=== PATIENT | female | born 2000 | race American Indian/Alaskan Native ===

== ENCOUNTER 2020-12-22 06:05 | Inpatient (IN) | payer SELFPAY ==
--- NOTE | 2020-12-22 06:36 | Event Note ---
ED Screening Note ED Screening Note: 20-year-old female presents emerged department complaining of pain to the right collarbone area into the right ribs of unknown etiology states that if she feels pops and sharp pain radiates across those regions worse when she takes a deep breath and certain movements. She cannot measure department democracy for the little short of breath. She reports This initial assessment/diagnostic orders/clinical plan/treatment(s) is/are subject to change based on patients health status, clinical progression and re- assessment by fellow clinical providers in the ED. Further treatment and workup at subsequent clinical providers discretion. Patient/guardian urged not to elope from the ED as their condition may be serious if not clinically assessed and managed. Initial orders include: Chest x-ray
--- NOTE | 2020-12-22 07:07 | XRay Report ---
CHEST 2 VIEWS INDICATION: chest pain. COMPARISON: None. FINDINGS: Support devices: None. Heart: Within normal limits. Lungs/Pleura: No acute air space or interstitial disease. No significant pleural effusion. IMPRESSION: No acute findings. Signer Name: Tez Ortiz MD Signed: 12/22/2020 7:02 AM Workstation Name: [id number]
--- NOTE | 2020-12-22 08:02 | Emergency Department Report ---
ED General Adult HPI - General Chief complaint: Dyspnea/Respdistress Stated complaint: RT SIDE PAIN FROM NECK DOWN TO THE SIDE Time Seen by Provider: 12/22/20 07:58 Source: patient Mode of arrival: Ambulatory Limitations: No Limitations - History of Present Illness Initial comments: Patient is 20 years old female with no significant past medical history. Patient presented to the ER complaining of right sided chest pain started 2 days ago. Patient described her chest pain as sharp increase with deep inspiration. Patient stated that she was coughing yesterday a lot. Patient denied any fever or chills. No shortness of breath. Patient denied any recent history of immobilization. - Related Data Allergies Allergy/AdvReac Type Severity Reaction Status Date / Time No Known Allergies Allergy Unverified 12/22/20 08:10 ED Review of Systems ROS: Stated complaint: RT SIDE PAIN FROM NECK DOWN TO THE SIDE Other details as noted in HPI Comment: All other systems reviewed and negative Constitutional: denies: chills, fever Respiratory: cough. denies: orthopnea, shortness of breath, SOB with exertion, SOB at rest Cardiovascular: chest pain. denies: palpitations, dyspnea on exertion Gastrointestinal: denies: abdominal pain, nausea, vomiting Neurological: denies: headache, weakness, numbness, paresthesias, confusion ED Past Medical Hx - Past Medical History Previous Medical History?: No - Surgical History Past Surgical History?: No ED Physical Exam - General Limitations: No Limitations General appearance: alert, in no apparent distress - Head Head exam: Present: atraumatic, normocephalic, normal inspection - Eye Eye exam: Present: normal appearance - ENT ENT exam: Present: normal exam, normal orophraynx, mucous membranes moist - Neck Neck exam: Present: normal inspection, full ROM. Absent: tenderness, meningismus - Respiratory Respiratory exam: Present: normal lung sounds bilaterally, chest wall tenderness - Cardiovascular Cardiovascular Exam: Present: regular rate, normal rhythm, normal heart sounds - GI/Abdominal GI/Abdominal exam: Present: soft, normal bowel sounds. Absent: distended, tenderness, guarding, rebound, rigid, organomegaly, mass, bruit, pulsatile mass, hernia - Extremities Exam Extremities exam: Present: normal inspection, full ROM, normal capillary refill. Absent: pedal edema, calf tenderness - Back Exam Back exam: Present: normal inspection, full ROM. Absent: CVA tenderness (R), CVA tenderness (L) - Neurological Exam Neurological exam: Present: alert, oriented X3, CN II-XII intact, normal gait, reflexes normal. Absent: motor sensory deficit - Psychiatric Psychiatric exam: Present: normal mood - Skin Skin exam: Present: warm, intact, normal color ED Course Vital Signs 12/22/20 12/22/20 12/22/20 06:19 08:25 10:44 Temperature 98.2 F Pulse Rate 92 H Respiratory 17 16 16 Rate Blood Pressure Blood Pressure 140/84 [Right] O2 Sat by Pulse 98 Oximetry 12/22/20 12/22/20 12/22/20 11:14 11:15 11:21 Temperature Pulse Rate 102 H 93 H 86 Respiratory 20 19 20 Rate Blood Pressure 152/93 152/93 Blood Pressure [Right] O2 Sat by Pulse 100 100 99 Oximetry ED Medical Decision Making - Lab Data Result diagrams: 12/22/20 08:36 12/22/20 08:36 - Radiology Data Radiology results: report reviewed - Medical Decision Making Patient is 20 years old female with no significant past medical history. Patient presented to the ER complaining of right sided chest pain started 2 days ago. Patient described her chest pain as sharp increase with deep inspiration. Patient stated that she was coughing yesterday a lot. Patient denied any fever or chills. No shortness of breath. Patient denied any recent history of immobilization. CTA chest showed bilateral pulmonary emboli, right side is bigger with some consolidation indicating possible pulmonary infarction. I started patient on Heparin drip. I discussed the patient with Dr. Omalley, he agreed to admit the patient to medical service for further management. Critical Care Time: Yes Critical care time in (mins) excluding proc time.: 35 Critical care attestation.: If time is entered above; I have spent that time in minutes in the direct care of this critically ill patient, excluding procedure time. ED Disposition Clinical Impression: Bilateral pulmonary embolism, Acute chest pain Disposition: ADMITTED INPATIENT Is pt being admited?: Yes Condition: Stable Instructions: Chest Pain (ED)
[2020-12-22] MEDS: KETOROLAC 60 MG/2 ML INJ IM SCH ×2 (08:25→10:44)
[2020-12-22 09:00] LABS: Basophils # (Auto) 0.1 K/mm3 (0.0-0.1); Basophils % (Auto) 0.8 % (0.0-1.8); Eosinophils # (Auto) 0.1 K/mm3 (0.0-0.4); Hematocrit 40.3 % (30.3-42.9); Hemoglobin 13.2 gm/dl (10.1-14.3); Lymphocytes # (Auto) 1.7 K/mm3 (1.2-5.4); Mean Corpuscular HGB Conc 33 % (30-34); Mean Corpuscular Volume 90 fl (79-97); Monocytes # (Auto) 0.7 K/mm3 (0.0-0.8); Platelet Count 253 K/mm3 (140-440); Red Blood Count 4.49 M/mm3 (3.65-5.03)
[2020-12-22 09:18] LABS: BUN/Creatinine Ratio 18; Blood Urea Nitrogen 11 mg/dL (7-17); Calcium 9.4 mg/dL (8.4-10.2); Hemolysis Index 8
--- NOTE | 2020-12-22 11:01 | Cat Scan Report ---
CTA chest with contrast INDICATION : CHEST PAIN WITH SOB. TECHNIQUE: Axial imaging performed through the chest, with contrast bolus timing set to maximize opa cification of the pulmonary arteries. 3-plane MIP reformatted images were obtained. All CT scans at this location are performed using CT dose reduction for ALARA by means of automated exposure control. 95 mL of intravenous contrast administered. COMPARISON: None FINDINGS: Bolus/PTE: Contrast bolus timing is adequate. There is subsegmental thrombus in the right lower lob e and to a lesser extent in the left lower lobe. Mediastinum: Heart and great vessels appear normal. No pathologic mediastinal adenopathy. Lungs: There is patchy right basilar airspace disease which abuts the pleural surface. No pleural ef fusion. Lungs are otherwise clear. Upper abdomen: Limited imaging of the upper abdomen shows nothing acute. Bones: Degenerative changes in the spine with nothing acute. IMPRESSION: Subsegmental PTE in both lower lobes, overall more significant on the right where there i s patchy pleural based airspace disease which could at least in part represent parenchymal ischemic c hange. COMMUNICATION: Time of Communication (STRUCTURAL IRONWORKER/CDT): 9:53 Licensed Practitioner Receiving Report: Dr. Figueroa Signer Name: Han Villafana MD Signed: 12/22/2020 10:56 AM Workstation Name: [id number]
[2020-12-22] MEDS ORDERED: MORPHINE 4 MG/1 ML INJ IV ONE (11:33)
[2020-12-22] MEDS ORDERED: ONDANSETRON 4 MG/2 ML INJ IV ONE (11:33)
[2020-12-22 11:45] LABS: INR 0.88 (0.87-1.13)
[2020-12-22 11:46] LABS: Partial Thromboplastin Time 28.2 Sec. (24.2-36.6)
[2020-12-22] MEDS: HEPARIN/ 0.45% NACL DRIP 25,000 UNIT/500 ML BAG IV SCH (12:40)
--- NOTE | 2020-12-22 21:22 | History and Physical Report ---
History of Present Illness Date of examination: 12/22/20 Date of admission: 12/22/20 11:30 Chief complaint: Right-sided chest pain for 4 days History of present illness: 21-year-old former with no significant past medical history comes to the emergency room complaining of right chest sided chest pain for last 2 days more so with inspiration. Pain is sharp and about 8 on a scale of 1-10. Also short of breath since last night. Shortness of breath on minimal exertion. Patient does marijuana and alcohol on a regular basis. Recently started on oral contraceptives. Patient was on Depo-Provera injections. Patient lying comfortably. No fever or chills. Patient is unvaccinated. - Past Medical History Previous Medical History?: No - Surgical History Past Surgical History?: No -Social history smokes marijuana and alcohol on regular basis. - Family history Htn -Review of Systems ROS: Stated complaint: RT SIDE PAIN FROM NECK DOWN TO THE SIDE Other details as noted in HPI Comment: All other systems reviewed and negative Constitutional: denies: chills, fever Respiratory: cough. denies: orthopnea, shortness of breath, SOB with exertion, SOB at rest Cardiovascular: chest pain. denies: palpitations, dyspnea on exertion Gastrointestinal: denies: abdominal pain, nausea, vomiting Neurological: denies: headache, weakness, numbness, paresthesias, confusion Medications and Allergies Allergies Allergy/AdvReac Type Severity Reaction Status Date / Time No Known Allergies Allergy Unverified 12/22/20 08:10 Home Medications Medication Instructions Recorded Confirmed Last Taken Type Afaxys 12/22/20 12/22/20 History Active Meds: Active Medications Heparin Sodium/Sodium Chloride (Heparin/ 0.45% Nacl-25,000 Unit/500 Ml) 25,000 unit in 500 mls @ 29 mls/hr IV TITR JEROD; Protocol Last Titration: 12/22/20 20:18 Dose: 1,450 units/hr, 29 mls/hr Documented by: Exam - Constitutional Vitals: Temp Pulse Resp BP Pulse Ox 98.2 F 74 14 137/75 97 12/22/20 06:19 12/22/20 21:00 12/22/20 21:00 12/22/20 21:00 12/22/20 21:00 General appearance: Present: no acute distress, well-nourished - EENT Eyes: Present: PERRL ENT: hearing intact, clear oral mucosa - Neck Neck: Present: supple, normal ROM - Respiratory Respiratory effort: normal Respiratory: bilateral: CTA - Cardiovascular Heart rate: 78 Rhythm: regular Heart Sounds: Present: S1 & S2. Absent: rub, click - Extremities Extremities: pulses symmetrical, No edema Peripheral Pulses: within normal limits - Abdominal General gastrointestinal: Present: soft, non-tender, non-distended, normal bowel sounds Female genitourinary: Present: normal - Rectal Rectal Exam: deferred - Integumentary Integumentary: Present: clear, warm, dry - Musculoskeletal Musculoskeletal: gait normal, strength equal bilaterally - Psychiatric Psychiatric: appropriate mood/affect, intact judgment & insight - Neurologic Neurologic: CNII-XII intact, moves all extremities - Allied Health Allied health notes reviewed: nursing, case management Results - Labs CBC & Chem 7: 12/23/20 05:47 12/22/20 08:36 Labs: Laboratory Last Values WBC 10.5 K/mm3 (4.5-11.0) 12/22/20 08:36 RBC 4.49 M/mm3 (3.65-5.03) 12/22/20 08:36 Hgb 13.2 gm/dl (10.1-14.3) 12/22/20 08:36 Hct 40.3 % (30.3-42.9) 12/22/20 08:36 MCV 90 fl (79-97) 12/22/20 08:36 MCH 29 pg (28-32) 12/22/20 08:36 MCHC 33 % (30-34) 12/22/20 08:36 RDW 13.0 % (13.2-15.2) L 12/22/20 08:36 Plt Count 253 K/mm3 (140-440) 12/22/20 08:36 Lymph % (Auto) 16.0 % (13.4-35.0) 12/22/20 08:36 [place] % (Auto) 7.0 % (0.0-7.3) 12/22/20 08:36 Eos % (Auto) 1.0 % (0.0-4.3) 12/22/20 08:36 Baso % (Auto) 0.8 % (0.0-1.8) 12/22/20 08:36 Lymph # (Auto) 1.7 K/mm3 (1.2-5.4) 12/22/20 08:36 [place] # (Auto) 0.7 K/mm3 (0.0-0.8) 12/22/20 08:36 Eos # (Auto) 0.1 K/mm3 (0.0-0.4) 12/22/20 08:36 Baso # (Auto) 0.1 K/mm3 (0.0-0.1) 12/22/20 08:36 Seg Neutrophils % 75.2 % (40.0-70.0) H 12/22/20 08:36 Seg Neutrophils # 7.9 K/mm3 (1.8-7.7) H 12/22/20 08:36 PT 13.0 Sec. (12.2-14.9) 12/22/20 Unknown INR 0.88 (0.87-1.13) 12/22/20 Unknown APTT 28.2 Sec. (24.2-36.6) 12/22/20 Unknown D-Dimer 774.68 ng/mlDDU (0-234) H 12/22/20 08:36 Heparin Anti-Xa Level 0.36 U.I./ml (0.3-0.7) 12/22/20 19:27 Sodium 137 mmol/L (137-145) 12/22/20 08:36 Potassium 4.4 mmol/L (3.6-5.0) 12/22/20 08:36 Chloride 102.8 mmol/L (98-107) 12/22/20 08:36 Carbon Dioxide 20 mmol/L (22-30) L 12/22/20 08:36 Anion Gap 19 mmol/L 12/22/20 08:36 BUN 11 mg/dL (7-17) 12/22/20 08:36 Creatinine 0.6 mg/dL (0.6-1.2) 12/22/20 08:36 Estimated GFR > 60 ml/min 12/22/20 08:36 BUN/Creatinine Ratio 18 % 12/22/20 08:36 Glucose 104 mg/dL (65-100) H 12/22/20 08:36 Calcium 9.4 mg/dL (8.4-10.2) 12/22/20 08:36 Lipase 11 units/L (13-60) L 12/22/20 08:36 HCG, Qual Negative (Negative) 12/22/20 08:36 - Imaging and Cardiology Chest x-ray: report reviewed CT scan - chest: report reviewed Imaging and Cardiology: Chest x-ray No acute findings Chest CTA Subsegmental pulmonary embolism in both lower lobes overall more significant on the right where there is patchy pleural based airspace disease which could at least in part represent parenchymal ischemic change Assessment and Plan Advance Directives: Yes (Full code) VTE prophylaxis?: Chemical Plan of care discussed with patient/family: Yes - Patient Problems (1) Bilateral pulmonary embolism Current Visit: Yes Status: Acute Plan to address problem: Patient initiated on IV heparin Intubated transition to Eliquis Only risk factor is oral contraceptives and smoking No call pulmonary hence vascular surgery was not consulted (2) Acute chest pain Current Visit: Yes Status: Acute (3) Tetrahydrocannabinol (THC) dependence Current Visit: Yes Status: Chronic Plan to address problem: Patient counseled (4) DVT prophylaxis Current Visit: Yes Status: Acute Plan to address problem: Patient on anticoagulation and GI prophylaxis
[2020-12-22] MEDS ORDERED: oxyCODONE /ACETAMINOPHEN 5-325MG TAB PO PRN (21:24)
[2020-12-22] MEDS ORDERED: ACETAMINOPHEN 325 MG TAB PO PRN (21:24)
[2020-12-22] MEDS ORDERED: ONDANSETRON 4 MG/2 ML INJ IV PRN (21:24)
[2020-12-22] MEDS ORDERED: METOCLOPRAMIDE 10 MG/2 ML INJ IV PRN (21:24)
[2020-12-22] MEDS ORDERED: KETOROLAC 30 MG/1 ML INJ IV PRN (21:28)
[2020-12-22] MEDS ORDERED: SODIUM CHLORIDE 0.9% 1000 ML 1,000 ML IV SCH (21:30)
[2020-12-22] MEDS: HYDROmorphone 1 MG/1 ML INJ IV PRN (22:15)
[2020-12-22 22:31] VITALS: BP 141/90
[2020-12-22] MEDS: FAMOTIDINE 20 MG/2 ML INJ IV SCH (22:47)
[2020-12-23] MEDS: HYDROmorphone 1 MG/1 ML INJ IV PRN (01:54)
[2020-12-23] MEDS: HEPARIN/ 0.45% NACL DRIP 25,000 UNIT/500 ML BAG IV SCH (05:50)
[2020-12-23 06:17] LABS: Basophils # (Auto) 0.1 K/mm3 (0.0-0.1); Basophils % (Auto) 0.6 % (0.0-1.8); Eosinophils # (Auto) 0.1 K/mm3 (0.0-0.4); Eosinophils % (Auto) 0.8 % (0.0-4.3); Hematocrit 37.7 % (30.3-42.9); Hemoglobin 12.2 gm/dl (10.1-14.3); Lymphocytes # (Auto) 2.1 K/mm3 (1.2-5.4); Lymphocytes % (Auto) 23.5 % (13.4-35.0); Mean Corpuscular HGB Conc 32 % (30-34); Mean Corpuscular Volume 90 fl (79-97); Monocytes # (Auto) 0.7 K/mm3 (0.0-0.8); Monocytes % (Auto) 7.9 % (0.0-7.3); Platelet Count 235 K/mm3 (140-440); Red Blood Count 4.18 M/mm3 (3.65-5.03); Red Cell Distribution Width 12.6 % (13.2-15.2)
[2020-12-23 06:36] LABS: Blood Urea Nitrogen 8 mg/dL (7-17); Calcium 9.2 mg/dL (8.4-10.2); Hemolysis Index 2
[2020-12-23 06:37] LABS: BUN/Creatinine Ratio 11
[2020-12-23] MEDS ORDERED: HEPARIN 10,000 UNITS/10 ML VIAL IV PRN (07:45)
[2020-12-23 08:05] LABS: INR 0.91 (0.87-1.13)
[2020-12-23 08:09] LABS: Partial Thromboplastin Time 65.1 Sec. (24.2-36.6)
[2020-12-23] MEDS: FAMOTIDINE 20 MG/2 ML INJ IV SCH (09:08)
--- NOTE | 2020-12-23 12:09 | Discharge Summary ---
Providers - Providers Date of Admission: 12/22/20 11:30 Attending physician: BRIANA MELENDEZ MD Primary care physician: NURSERY MANAGER Hospitalization Reason for admission: shortness of breath Condition: Stable Hospital course: Chief complaint: Right-sided chest pain for 4 days History of present illness: 21-year-old former with no significant past medical history comes to the emergency room complaining of right chest sided chest pain for last 2 days more so with inspiration. Pain is sharp and about 8 on a scale of 1-10. Also short of breath since last night. Shortness of breath on minimal exertion. Patient does marijuana and alcohol on a regular basis. Recently started on oral contraceptives. Patient was on Depo-Provera injections. Patient lying comfortably. No fever or chills. Patient is unvaccinated. Hospital course Patient was admitted for bilateral pulmonary embolism. She was initiated on IV heparin this hospital admission. Patient was on room air at the time of discharge. She was asymptomatic. I discussed with her the need to initiate Xarelto for at least 3 months or at the discretion of her primary care doctor. We believe that the pulmonary embolism was provoked from patient smoking history in the setting of oral contraceptive use. Advised the patient to hold oral contraceptives at this time and to abstain from smoking. Oral contraceptives can be resumed at the discretion of her primary care doctor. Prescriptions for Xarelto 15 mg p.o. twice daily to be initiated upon discharge and discontinued January 14, 2021 sent to pharmacy. Patient also written a 30-day prescription for Xarelto 20 mg p.o. daily to be initiated on January 14, 2021. Imaging and Cardiology: Chest x-ray No acute findings Chest CTA Subsegmental pulmonary embolism in both lower lobes overall more significant on the right where there is patchy pleural based airspace disease which could at least in part represent parenchymal ischemic change - Patient Problems (1) Bilateral pulmonary embolism Current Visit: Yes Status: Acute Plan to address problem: Patient initiated on IV heparin Intubated transition to Eliquis Only risk factor is oral contraceptives and smoking No call pulmonary hence vascular surgery was not consulted (2) Acute chest pain Current Visit: Yes Status: Acute (3) Tetrahydrocannabinol (THC) dependence Current Visit: Yes Status: Chronic Plan to address problem: Patient counseled (4) DVT prophylaxis Current Visit: Yes Status: Acute Plan to address problem: Patient on anticoagulation and GI prophylaxis Disposition: 01 HOME / SELF CARE / HOMELESS Final Discharge Diagnosis (Prints w/discharge instructions): Pulmonary Embolism Time spent for discharge: 35 - Discharge Diagnoses (1) Acute chest pain Status: Acute (2) Bilateral pulmonary embolism Status: Acute (3) DVT prophylaxis Status: Acute (4) Tetrahydrocannabinol (THC) dependence Status: Chronic Core Measure Documentation - Palliative Care Palliative Care/ Comfort Measures: Not Applicable - Core Measures Any of the following diagnoses?: DVT/PE - VTE Discharge Requirements Deep Vein Thrombosis/Pulmonary Embolism Present on Admission: No Has pt received <5 days of overlap therapy or INR<2.0: No (doac) Anticoagulant overlap therapy prescribed at discharge: No Contraindication No Overlap Therapy order at DC: Not Indicated (doac rx) Exam - Physical Exam Narrative exam: Physical Exam: VITAL SIGNS: Reviewed. GENERAL: The patient appears normally developed, Vital signs as documented. HEAD: No signs of head trauma. EYES: Pupils are equal. Extraocular motions intact. EARS: Hearing grossly intact. MOUTH: Oropharynx is normal. NECK: No adenopathy, no JVD. CHEST: Chest with clear breath sounds bilaterally. No wheezes, rales, or rhon chi. CARDIAC: Regular rate and rhythm. S1 and S2, without murmurs, gallops, or rubs. VASCULAR: No Edema. Peripheral pulses normal and equal in all extremities. ABDOMEN: Soft, non tender and non distended. No rebound or guarding, and no masses palpated. Bowel Sounds normal. MUSCULOSKELETAL: Good range of motion of all major joints. Extremities without clubbing, cyanosis or edema. NEUROLOGIC EXAM: Alert and oriented x 4. no focal sensory or strength deficits. PSYCHIATRIC: Mood normal. SKIN: detail exam as documented in skin assessment - Constitutional Vitals: Temp Pulse Resp BP Pulse Ox 98.2 F 82 18 141/90 100 12/22/20 06:19 12/23/20 06:55 12/23/20 02:55 12/22/20 22:00 12/23/20 10:22 Plan Follow up with: PRIMARY CARE, [Primary Care Provider] - 3-5 Days Prescriptions: Rivaroxaban [Xarelto] 15 mg PO BID 21 Days #42 tablet Rivaroxaban [Xarelto] 20 mg PO QDAY 30 Days #30 tab
== END 2020-12-23 15:31 | disposition home or self-care (01) | DRG 176 ==
LOC: ED 06:05 → 4A 11:30
PROVIDERS: ADMIT Internal Medicine; ATTEND Internal Medicine
DX: I26.99 Other pulmonary embolism without acute cor pulmonale (principal)
CPT/HCPCS: 36415; 71046; 71275; 80048; 83690; 84703; 85025; 85379; 85520; 85610; 85730; G0378; J3490; J1170; J1644; J1885; J2405; Q9967

== ENCOUNTER 2021-03-17 13:47 | Emergency (ER) | payer SELFPAY ==
--- NOTE | 2021-03-17 15:02 | Event Note ---
ED Screening Note ED Screening Note: SEE HERE 12/22 W SAME COMPLAINTS CP/HEAVY RIGHT SIDE PLEURITIC PAIN HEADACHE WAS FOUND TO HAVE PE- THOUGHT TO BE R/T BCP SHE STOPPED XARALTO DUE TO COST DID NOT FOLLOW UP PMH DENIES PSH DENIES DUE FOR MENSES THIS WEEK ETOH THC This initial assessment/diagnostic orders/clinical plan/treatment(s) is/are subject to change based on patients health status, clinical progression and re- assessment by fellow clinical providers in the ED. Further treatment and workup at subsequent clinical providers discretion. Patient/guardian urged not to elope from the ED as their condition may be serious if not clinically assessed and managed. Initial orders include: RO PE/DVT
[2021-03-17 16:27] LABS: Basophils # (Auto) 0.1 K/mm3 (0.0-0.1); Basophils % (Auto) 0.9 % (0.0-1.8); Eosinophils # (Auto) 0.1 K/mm3 (0.0-0.4); Eosinophils % (Auto) 1.6 % (0.0-4.3); Hematocrit 38.7 % (30.3-42.9); Hemoglobin 12.8 gm/dl (10.1-14.3); Lymphocytes # (Auto) 2.1 K/mm3 (1.2-5.4); Lymphocytes % (Auto) 27.3 % (13.4-35.0); Mean Corpuscular HGB Conc 33 % (30-34); Mean Corpuscular Volume 88 fl (79-97); Monocytes # (Auto) 0.7 K/mm3 (0.0-0.8); Monocytes % (Auto) 9.1 % (0.0-7.3); Platelet Count 249 K/mm3 (140-440); Red Blood Count 4.39 M/mm3 (3.65-5.03); Red Cell Distribution Width 13.1 % (13.2-15.2)
[2021-03-17 16:31] LABS: INR 0.86 (0.87-1.13)
[2021-03-17 16:32] LABS: Alanine Aminotransferase 24 units/L (7-56); Albumin 4.6 g/dL (3.9-5); Blood Urea Nitrogen 8 mg/dL (7-17); Calcium 9.3 mg/dL (8.4-10.2); Hemolysis Index 2; Partial Thromboplastin Time 28.6 Sec. (24.2-36.6)
[2021-03-17 17:20] LABS: BUN/Creatinine Ratio 11
[2021-03-17 18:06] LABS: Bilirubin,Urine Negative (Negative); Blood,Urine Negative (Negative); Color,Urine Yellow (Yellow)
[2021-03-17 18:07] LABS: HCG Qualitative,Urine Negative (Negative); Protein,Urine <15 mg/dL mg/dL (Negative); RBC,Urine < 1.0 /HPF (0.0-6.0); Urobilinogen,Urine < 2.0 mg/dL (<2.0); WBC,Urine < 1.0 /HPF (0.0-6.0)
--- NOTE | 2021-03-17 20:13 | Cat Scan Report ---
CTA CHEST WITH IV CONTRAST INDICATION: Acute onset chest pain with dyspnea. TECHNIQUE: Axial CT images were obtained through the chest after injection of 100 mL Omnipaque 350 IV contrast. 3 plane MIP reconstructions were produced. All CT scans at this location are performed using CT dose reduction for ALARA by means of automated exposure control. COMPARISON: None available. FINDINGS: PULMONARY ARTERIES: No pulmonary emboli. AORTA AND ARTERIES: No acute abnormality. MEDIASTINUM: No mass, lymphadenopathy or other significant abnormality. The heart is normal in size w ithout a pericardial effusion. The trachea and main bronchi are patent and normal in caliber. LUNGS: No suspicious consolidation, nodule or mass. No pneumothorax or pleural effusion. ADDITIONAL FINDINGS: None. UPPER ABDOMEN: No acute findings. BONES: No significant osseous abnormality. IMPRESSION: 1. No CT evidence for pulmonary embolism. 2. No acute findings. Signer Name: Ford Wolf MD Signed: 03/17/2021 8:09 PM Workstation Name: [id number]
--- NOTE | 2021-03-17 21:55 | Emergency Department Report ---
ED General Adult HPI - General Chief complaint: Headache Stated complaint: HEADACHE/CARMEN/SIDE PAIN Time Seen by Provider: 03/17/21 14:59 Source: patient Mode of arrival: Ambulatory Limitations: No Limitations - History of Present Illness Initial comments: Patient 20-year-old -Monegasque female who was diagnosed with PE in November 2020. Patient states she was started on Eliquis however stopped taking it 3 days ago concern for PE. Patient denies chest pain no nausea no vomiting. States she wants to make sure there is no clot. This is versus what initial statement when presenting to triage today patient denies chest pain, there is no dizziness, no lightheadedness no fever no chills no nausea no vomiting no back pain. Menstrual cycle 2 weeks ago. We review vitals and diagnosed with Lasix as ordered. Patient requesting referral for primary care doctor will complete referral for same. Patient with no acute distress at this time - Related Data Previous Rx's Medication Instructions Recorded Last Taken Type Rivaroxaban [Xarelto] 15 mg PO BID 21 Days #42 tablet 12/23/20 Unknown Rx Rivaroxaban [Xarelto] 20 mg PO QDAY 30 Days #30 tab 12/23/20 Unknown Rx Allergies Allergy/AdvReac Type Severity Reaction Status Date / Time No Known Allergies Allergy Verified 12/23/20 12:07 ED Review of Systems ROS: Stated complaint: HEADACHE/CARMEN/SIDE PAIN Other details as noted in HPI Constitutional: denies: chills, fever Eyes: denies: eye pain, eye discharge, vision change ENT: denies: ear pain, throat pain Respiratory: denies: cough, shortness of breath, wheezing Cardiovascular: denies: chest pain, palpitations Endocrine: no symptoms reported Gastrointestinal: denies: abdominal pain, nausea, diarrhea Genitourinary: as per HPI Musculoskeletal: denies: back pain, joint swelling, arthralgia Skin: denies: rash, lesions Neurological: denies: headache, weakness, paresthesias Psychiatric: denies: anxiety, depression Hematological/Lymphatic: denies: easy bleeding, easy bruising ED Past Medical Hx - Past Medical History Previous Medical History?: No - Surgical History Past Surgical History?: No - Social History Smoking Status: Current Some Day Smoker - Medications Home Medications: Home Medications Medication Instructions Recorded Confirmed Last Taken Type Rivaroxaban [Xarelto] 15 mg PO BID 21 Days #42 tablet 12/23/20 Unknown Rx Rivaroxaban [Xarelto] 20 mg PO QDAY 30 Days #30 tab 12/23/20 Unknown Rx ED Physical Exam - General Limitations: No Limitations General appearance: alert, in no apparent distress - Head Head exam: Present: atraumatic, normocephalic - Eye Eye exam: Present: PERRL, EOMI Pupils: Present: normal accommodation - ENT ENT exam: Present: mucous membranes moist - Neck Neck exam: Present: normal inspection - Respiratory Respiratory exam: Present: normal lung sounds bilaterally. Absent: respiratory distress, wheezes, rales, rhonchi, stridor, chest wall tenderness, prolonged expiratory - Cardiovascular Cardiovascular Exam: Present: regular rate, normal rhythm, normal heart sounds. Absent: systolic murmur, diastolic murmur, rubs, gallop - GI/Abdominal GI/Abdominal exam: Present: soft, normal bowel sounds. Absent: distended, tenderness, guarding, rebound, rigid, bruit, hernia - Rectal Rectal exam: Present: deferred - Extremities Exam Extremities exam: Present: normal inspection, full ROM - Back Exam Back exam: Present: normal inspection, full ROM. Absent: tenderness, CVA tenderness (R), CVA tenderness (L) - Neurological Exam Neurological exam: Present: alert, oriented X3, CN II-XII intact, normal gait - Psychiatric Psychiatric exam: Present: normal affect, normal mood - Skin Skin exam: Present: warm, dry, intact, normal color. Absent: rash ED Course Vital Signs 03/17/21 14:49 Temperature 99.0 F Pulse Rate 77 Respiratory 16 Rate Blood Pressure 139/80 O2 Sat by Pulse 99 Oximetry ED Medical Decision Making - Lab Data Result diagrams: 03/17/21 15:29 03/17/21 15:29 Labs 03/17/21 03/17/21 03/17/21 15:29 15:29 15:29 WBC 7.6 RBC 4.39 Hgb 12.8 Hct 38.7 MCV 88 MCH 29 MCHC 33 RDW 13.1 L Plt Count 249 Lymph % (Auto) 27.3 [place] % (Auto) 9.1 H Eos % (Auto) 1.6 Baso % (Auto) 0.9 Lymph # (Auto) 2.1 [place] # (Auto) 0.7 Eos # (Auto) 0.1 Baso # (Auto) 0.1 Seg Neutrophils % 61.1 Seg Neutrophils # 4.6 PT 12.7 INR 0.86 L APTT 28.6 Sodium 137 Potassium 4.1 Chloride 101.8 Carbon Dioxide 22 Anion Gap 17 BUN 8 Creatinine 0.7 Estimated GFR > 60 BUN/Creatinine Ratio 11 Glucose 85 Calcium 9.3 Total Bilirubin 0.30 AST 15 ALT 24 Alkaline Phosphatase 86 Troponin T < 0.010 Total Protein 7.4 Albumin 4.6 Albumin/Globulin Ratio 1.6 Urine Color Urine Turbidity Urine pH Ur Specific [place] Urine Protein Urine Glucose (UA) Urine Ketones Urine Blood Urine Nitrite Urine Bilirubin Urine Urobilinogen Ur Leukocyte Esterase Urine WBC (Auto) Urine RBC (Auto) Urine HCG, Qual 03/17/21 17:10 WBC RBC Hgb Hct MCV MCH MCHC RDW Plt Count Lymph % (Auto) [place] % (Auto) Eos % (Auto) Baso % (Auto) Lymph # (Auto) [place] # (Auto) Eos # (Auto) Baso # (Auto) Seg Neutrophils % Seg Neutrophils # PT INR APTT Sodium Potassium Chloride Carbon Dioxide Anion Gap BUN Creatinine Estimated GFR BUN/Creatinine Ratio Glucose Calcium Total Bilirubin AST ALT Alkaline Phosphatase Troponin T Total Protein Albumin Albumin/Globulin Ratio Urine Color Yellow Urine Turbidity Clear Urine pH 5.0 Ur Specific [place] 1.015 Urine Protein <15 mg/dl Urine Glucose (UA) Negative Urine Ketones Negative Urine Blood Negative Urine Nitrite Negative Urine Bilirubin Negative Urine Urobilinogen < 2.0 Ur Leukocyte Esterase Negative Urine WBC (Auto) < 1.0 Urine RBC (Auto) < 1.0 Urine HCG, Qual Negative - Radiology Data Radiology results: report reviewed, image reviewed CTA CHEST WITH IV CONTRAST INDICATION: Acute onset chest pain with dyspnea. TECHNIQUE: Axial CT images were obtained through the chest after injection of 100 mL Omnipaque 350 IV contrast. 3 plane MIP reconstructions were produced. All CT scans at this location are performed u sing CT dose reduction for ALARA by means of automated exposure control. COMPARISON: None available. FINDINGS: PULMONARY ARTERIES: No pulmonary emboli. AORTA AND ARTERIES: No acute abnormality. MEDIASTINUM: No mass, lymphadenopathy or other significant abnormality. The heart is normal in size without a pericardial effusion. The trachea and main bronchi are patent and normal in caliber. LUNGS: No suspicious consolidation, nodule or mass. No pneumothorax or pleural effusion. ADDITIONAL FINDINGS: None. UPPER ABDOMEN: No acute findings. BONES: No significant osseous abnormality. IMPRESSION: 1. No CT evidence for pulmonary embolism. 2. No acute findings. Signer Name: Ford Wolf MD Signed: 03/17/2021 8:09 PM Workstation Name: [id number] Transcribed By: SANJUANA Dictated By: Ford Wolf MD Electronically Authenticated By: Ford Wolf MD Signed Date/Time: 03/17/212008 DD/ 04 TD/TT: - Medical Decision Making CTA negative for PE, all other labs are normal. Patient is currently alert oriented x3 amatory with steady gait patient ambulated from room to bathroom and return to ED without getting short of breath there is no dizziness no nausea no vomiting no headache no fever no chest pain no shortness of breath no cough no wheezing no stridor. Patient is totally asymptomatic at this time plan DC to home, follow-up primary care doctor. Return to ED should symptoms worsen. Patient verbalizes agreement and understanding with discharge plan. Patient DC'd home in stable condition at this time. Critical care attestation.: If time is entered above; I have spent that time in minutes in the direct care of this critically ill patient, excluding procedure time. ED Disposition Clinical Impression: Hx of pulmonary embolus Disposition: 01 HOME / SELF CARE / HOMELESS Is pt being admited?: No Does the pt Need Aspirin: No Condition: Stable Instructions: Apixaban oral tablets Additional Instructions: Follow with your primary care doctor in 2 to 3 days. Return to emergency depa rtment should symptoms worsen. Referrals: [facility] [Provider Group] - 3-5 Days Forms: Work/School Release Form(ED) Time of Disposition: 21:55
[2021-03-17 22:03] VITALS: BP 126/81
== END 2021-03-17 22:02 | disposition home or self-care (01) ==
LOC: ED 13:47
DX: Z86.711 Personal history of pulmonary embolism (principal); F17.200 Nicotine dependence, unspecified, uncomplicated
CPT/HCPCS: 36415; 71275; 80053; 81001; 81025; 84484; 85025; 85610; 85730; 99284; Q9967

== ENCOUNTER 2021-06-01 09:13 | Emergency (ER) | payer SELFPAY ==
[2021-06-01 10:49] LABS: HCG Qualitative,Urine Positive (Negative)
[2021-06-01 10:50] LABS: Bilirubin,Urine NEG (Negative); Blood,Urine NEG (Negative); Color,Urine Yellow (Yellow); Mucus,Urine FEW /HPF; Protein,Urine <15 mg/dL mg/dL (Negative); Urobilinogen,Urine < 2.0 mg/dL (<2.0); WBC,Urine < 1.0 /HPF (0.0-6.0)
--- NOTE | 2021-06-01 14:38 | Ultrasound Report ---
FIRSTTRIMESTER OBSTETRIC ULTRASOUND ULTRASOUND OB TRANSVAGINAL HISTORY: Abdominal pain during COMPARISON: None. TECHNIQUE: Routine transabdominal and transvaginal OB ultrasound performed. FINDINGS: Uterus: Unremarkable and normal size measuring 7.8 x 4.0 x 4.6 cm. Gestational Sac: Not seen Yolk Sac: Not seen Fetus/Embryo: Not seen Endometrium: The endometrium is homogeneous and normal thickness measuring 1.0 cm. Ovaries: The right ovary measures 3.7 x 1.9 x 2.7 cm. There is an ill-defined 1.5 cm hypoechoic area in the right ovary. This may represent a corpus luteum cyst. The left ovary is unremarkable measuring 2.7 x 1.5 x 1.7 cm. Additional findings: No free pelvic fluid or fluid collection. IMPRESSION No intrauterine is demonstrated at this time on ultrasound. The endometrium is unremarkable measuring 1 cm in thickness. This may represent a very early normal . Please note an ectopi c or aborted are not excluded. Close interval follow-up and correlation with beta hCG levels is recommended. Slightly complex area in the right ovary which may represent a corpus luteum cyst. Signer Name: Thien Schwartz Jr, MD Signed: 06/01/2021 2:34 PM Workstation Name: [id number]
[2021-06-01 15:40] LABS: Alanine Aminotransferase 17 units/L (7-56); Albumin 4.7 g/dL (3.9-5); Blood Urea Nitrogen 6 mg/dL (7-17); Calcium 9.8 mg/dL (8.4-10.2); Hemolysis Index 2
[2021-06-01 15:50] LABS: BUN/Creatinine Ratio 10
--- NOTE | 2021-06-01 15:56 | Emergency Department Report ---
ED Abdominal Pain HPI - General Chief Complaint: Abdominal Pain Stated Complaint: ABDOMINAL CRAMP (PREG) Time Seen by Provider: 06/01/21 13:21 Source: patient Mode of arrival: Ambulatory Limitations: No Limitations - History of Present Illness Initial Comments: 20-year-old black female with a past medical history of a PE. Her OAC 2 to 3 months ago presents to the emergency department for evaluation of abdominal pain. Patient states that she had a positive test 2 days ago, then started to have abdominal pain to her lower abdomen yesterday. She denies dysuria, fever, vaginal bleeding, and vaginal discharge. She states that pain is 2 out of 10. Patient is G2, P0 stating that she had a miscarriage a few years ago. MD Complaint: abdominal pain -: Gradual, days(s) (1) Location: LLQ, RLQ Radiation: none Migration to: no migration Severity scale (0 -10): 3 Quality: aching Consistency: intermittent Associated Symptoms: denies: nausea, vomiting, diarrhea, fever, chills, dysuria, hematochezia, melena, hematuria, anorexia, syncope - Related Data LMP Date: 04/26/21 LMP (females 10-50): Previous Rx's Medication Instructions Recorded Last Taken Type Rivaroxaban [Xarelto] 15 mg PO BID 21 Days #42 tablet 12/23/20 Unknown Rx Rivaroxaban [Xarelto] 20 mg PO QDAY 30 Days #30 tab 12/23/20 Unknown Rx Allergies Allergy/AdvReac Type Severity Reaction Status Date / Time No Known Allergies Allergy Verified 12/23/20 12:07 ED Review of Systems ROS: Stated complaint: ABDOMINAL CRAMP (PREG) Other details as noted in HPI Comment: All other systems reviewed and negative Constitutional: denies: chills, fever Respiratory: denies: cough, shortness of breath, SOB at rest Cardiovascular: denies: chest pain, palpitations, dyspnea on exertion, orthopnea, edema, syncope, paroxysmal nocturnal dyspnea Gastrointestinal: abdominal pain. denies: nausea, vomiting, diarrhea, hematemesis, melena, hematochezia Genitourinary: denies: urgency, dysuria, frequency, hematuria, discharge, abnorm al menses Musculoskeletal: denies: back pain Skin: denies: rash, lesions Neurological: denies: headache, weakness ED Past Medical Hx - Social History Smoking Status: Current Some Day Smoker - Medications Home Medications: Home Medications Medication Instructions Recorded Confirmed Last Taken Type Rivaroxaban [Xarelto] 15 mg PO BID 21 Days #42 tablet 12/23/20 Unknown Rx Rivaroxaban [Xarelto] 20 mg PO QDAY 30 Days #30 tab 12/23/20 Unknown Rx ED Physical Exam - General Limitations: No Limitations General appearance: alert, in no apparent distress - Head Head exam: Present: atraumatic, normocephalic - Eye Eye exam: Present: normal appearance. Absent: conjunctival injection - Neck Neck exam: Present: normal inspection. Absent: tenderness, lymphadenopathy - Respiratory Respiratory exam: Present: normal lung sounds bilaterally. Absent: respiratory distress, wheezes, rales, rhonchi, stridor, chest wall tenderness - Cardiovascular Cardiovascular Exam: Present: regular rate, normal heart sounds - GI/Abdominal GI/Abdominal exam: Present: soft, normal bowel sounds. Absent: distended, tenderness, guarding, rebound, rigid - Extremities Exam Extremities exam: Present: normal inspection, normal capillary refill. Absent: tenderness, pedal edema, joint swelling - Back Exam Back exam: Present: normal inspection. Absent: tenderness, CVA tenderness (R), CVA tenderness (L) - Neurological Exam Neurological exam: Present: alert, oriented X3, normal gait - Psychiatric Psychiatric exam: Present: normal affect, normal mood - Skin Skin exam: Present: warm, dry, intact, normal color ED Course Vital Signs 06/01/21 06/01/21 10:27 16:11 Temperature 98.1 F 94.0 F L Pulse Rate 78 88 Respiratory 18 16 Rate Blood Pressure 137/82 121/78 [Right] O2 Sat by Pulse 98 99 Oximetry ED Medical Decision Making - Lab Data Result diagrams: 06/01/21 14:37 - Radiology Data Radiology results: report reviewed Transvaginal and ultrasound: FINDINGS: Uterus: Unremarkable and normal size measuring 7.8 x 4.0 x 4.6 cm. Gestational Sac: Not seen Yolk Sac: Not seen Fetus/Embryo: Not seen Endometrium: The endometrium is homogeneous and normal thickness measuring 1.0 cm. Ovaries: The right ovary measures 3.7 x 1.9 x 2.7 cm. There is an ill-defined 1.5 cm hypoechoic area in the right ovary. This may represent a corpus luteum cyst. The left ovary is unremarkable measuring 2.7 x 1.5 x 1.7 cm. Additional findings: No free pelvic fluid or fluid collection. IMPRESSION No intrauterine is demonstrated at this time on ultrasound. The end ometrium is unremarkable measuring 1 cm in thickness. This may represent a very early normal . Please note an ectopic or aborted are not excluded. Close interval follow-up and correlation with beta hCG levels is recommended. Slightly complex area in the right ovary which may represent a corpus luteum cyst. - Medical Decision Making 20-year-old black female with a past medical history of a PE. Her OAC 2 to 3 months ago presents to the emergency department for evaluation of abdominal pain. Patient states that she had a positive test 2 days ago, then started to have abdominal pain to her lower abdomen yesterday. She denies dysuria, fever, vaginal bleeding, and vaginal discharge. She states that pain is 2 out of 10. Patient is G2, P0 stating that she had a miscarriage a few years ago. No gross abnormalities noted on exam or on labs. Urine negative for urinary tract infection. Urine test positive and serum beta-hCG noted to be 66. No definitive IUP noted on ultrasound but probable early IUP. Results reviewed with patient, and she is advised with Dr. Dong as if she is , follow-up with OB or in the ER in the next 2 to 3 days for repeat hCG to evaluate if it is going up or down. She is advised to return to the emergency department immediately if she develops severe abdominal pain or vaginal bleeding. 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 She verbalized understanding of and agreement with plan of care. Critical care attestation.: If time is entered above; I have spent that time in minutes in the direct care of this critically ill patient, excluding procedure time. ED Disposition Clinical Impression: Abdominal pain in Qualifiers: Trimester: first trimester Qualified Code(s): O26.891 - Other specified related conditions, first trimester Disposition: 01 HOME / SELF CARE / HOMELESS Is pt being admited?: No Does the pt Need Aspirin: No Condition: Stable Instructions: Abdominal Pain During , [id number], Abdominal Pain (ED) Additional Instructions: Follow-up in 2 to 3 days for repeat hCG and further evaluation. Return to the emergency department as needed Referrals: [facility] [Provider Group] - 3-5 Days Time of Disposition: 15:56
[2021-06-01 16:15] VITALS: BP 121/78
== END 2021-06-01 16:11 | disposition home or self-care (01) ==
LOC: ED 09:13
DX: O26.891 Other specified pregnancy related conditions, first trimester (principal); R10.9 Unspecified abdominal pain
CPT/HCPCS: 76801; 76817; 80053; 81001; 81025; 84702; 99284

== ENCOUNTER 2021-06-04 05:58 | Emergency (ER) | payer OTHER ==
--- NOTE | 2021-06-04 06:28 | Emergency Department Report ---
ED HPI - General Chief complaint: Vaginal Bleeding Stated complaint: 5 WEEKS /BLEEDING Time Seen by Provider: 06/04/21 06:20 Source: patient, old records reviewed Mode of arrival: Ambulatory Limitations: No Limitations - History of Present Illness Initial comments: 20-year-old female with LMP 04/26/2021 presents to the hospital currently with vaginal cramping and bleeding. Patient presented to the ER here 2 days ago with cramping and had a hCG quant of 66 without an IUP on ultrasound. Today she developed vaginal bleeding that started 20 minutes prior to arrival with persistent cramping. This is her second with history of 1 miscarriage. Cramping is mild to moderate without aggravating or alleviating factors. Patient has not yet initiated care. Patient has a history of emboli diagnosed in December while on control. Patient states that she discontinued control and had a repeat CT scan in January at an ER which was negative for pulmonary embolism. Patient is not currently on ant icoagulation. patient had a negative CTA chest here in March - Related Data Previous Rx's Medication Instructions Recorded Last Taken Type Rivaroxaban [Xarelto] 15 mg PO BID 21 Days #42 tablet 12/23/20 Unknown Rx Rivaroxaban [Xarelto] 20 mg PO QDAY 30 Days #30 tab 12/23/20 Unknown Rx Ibuprofen [Motrin] 800 mg PO Q8HR PRN #30 tablet 06/04/21 Unknown Rx Allergies Allergy/AdvReac Type Severity Reaction Status Date / Time No Known Allergies Allergy Verified 06/04/21 06:08 ED Review of Systems ROS: Stated complaint: 5 WEEKS /BLEEDING Other details as noted in HPI Comment: All other systems reviewed and negative ED Past Medical Hx - Past Medical History Previous Medical History?: Yes Hx Pulmonary Embolism: Yes - Surgical History Past Surgical History?: No - Social History Smoking Status: Never Smoker Substance Use Type: None - Medications Home Medications: Home Medications Medication Instructions Recorded Confirmed Last Taken Type Rivaroxaban [Xarelto] 15 mg PO BID 21 Days #42 tablet 12/23/20 Unknown Rx Rivaroxaban [Xarelto] 20 mg PO QDAY 30 Days #30 tab 12/23/20 Unknown Rx Ibuprofen [Motrin] 800 mg PO Q8HR PRN #30 tablet 06/04/21 Unknown Rx ED Physical Exam - General Limitations: No Limitations - Other Other exam information: General: No acute distress Head: Atraumatic Eyes: normal appearance ENT: Moist mucous membranes Neck: Normal appearance, no midline tenderness Chest: Clear to auscultation bilaterally CV: Regular rate and rhythm Abdomen: Soft, normal bowel sounds, nontender, nondistended, no rebound or guarding Back: Normal inspection Extremity: Normal inspection, full range of motion Neuro: Alert O x 3, no facial asymmetry, speech clear, no gross motor sensory deficit Psych: Appropriate behavior Skin: No rash ED Course Vital Signs 06/04/21 06/04/21 06/04/21 06:03 06:17 06:31 Temperature 98.5 F 97.9 F Pulse Rate 87 126 H Respiratory 20 20 Rate Blood Pressure 146/86 116/76 112/69 Blood Pressure [Left] O2 Sat by Pulse 98 96 100 Oximetry 06/04/21 06/04/21 06/04/21 06:45 07:01 07:15 Temperature Pulse Rate Respiratory Rate Blood Pressure 114/61 127/69 115/46 Blood Pressure [Left] O2 Sat by Pulse 100 99 99 Oximetry 06/04/21 06/04/21 06/04/21 07:28 07:30 07:31 Temperature Pulse Rate 71 Respiratory 15 15 Rate Blood Pressure 115/46 Blood Pressure 115/46 [Left] O2 Sat by Pulse 99 99 98 Oximetry 06/04/21 06/04/21 06/04/21 07:45 08:01 08:15 Temperature Pulse Rate Respiratory Rate Blood Pressure 125/70 119/71 119/71 Blood Pressure [Left] O2 Sat by Pulse 99 99 Oximetry 06/04/21 06/04/21 06/04/21 08:31 08:45 08:57 Temperature Pulse Rate Respiratory Rate Blood Pressure 119/71 116/62 Blood Pressure 116/62 [Left] O2 Sat by Pulse 100 100 100 Oximetry ED Medical Decision Making - Lab Data Result diagrams: 06/04/21 06:56 Lab Results 06/04/21 06/04/21 06/04/21 Range/Units 06:56 06:56 08:33 WBC 6.8 (4.5-11.0) K/mm3 RBC 4.27 (3.65-5.03) M/mm3 Hgb 12.8 (10.1-14.3) gm/dl Hct 37.5 (30.3-42.9) % MCV 88 (79-97) fl MCH 30 (28-32) pg MCHC 34 (30-34) % RDW 13.5 (13.2-15.2) % Plt Count 226 (140-440) K/mm3 Lymph % (Auto) 20.5 (13.4-35.0) % [place] % (Auto) 7.9 H (0.0-7.3) % Eos % (Auto) 1.2 (0.0-4.3) % Baso % (Auto) 0.8 (0.0-1.8) % Lymph # (Auto) 1.4 (1.2-5.4) K/mm3 [place] # (Auto) 0.5 (0.0-0.8) K/mm3 Eos # (Auto) 0.1 (0.0-0.4) K/mm3 Baso # (Auto) 0.1 (0.0-0.1) K/mm3 Seg Neutrophils % 69.6 (40.0-70.0) % Seg Neutrophils # 4.7 (1.8-7.7) K/mm3 HCG, Quant 9.62 H (0-4) mIU/mL Blood Type B POSITIVE Antibody Screen Negative - Radiology Data Radiology results: report reviewed As per pervious record: Ordering Physician: THOMAS VAN Date of Service: 06/01/21 Procedure(s): US OB transvaginal Accession Number(s): [id number] FIRSTTRIMESTER OBSTETRIC ULTRASOUND ULTRASOUND OB TRANSVAGINAL HISTORY: Abdominal pain during COMPARISON: None. TECHNIQUE: Routine transabdominal and transvaginal OB ultrasound performed. FINDINGS: Uterus: Unremarkable and normal size measuring 7.8 x 4.0 x 4.6 cm. Gestational Sac: Not seen Yolk Sac: Not seen Fetus/Embryo: Not seen Endometrium: The endometrium is homogeneous and normal thickness measuring 1.0 cm. Ovaries: The right ovary measures 3.7 x 1.9 x 2.7 cm. There is an ill-defined 1.5 cm hypoechoic area in the right ovary. This may represent a corpus luteum cyst. The left ovary is unremarkable measuring 2.7 x 1.5 x 1.7 cm. Additional findings: No free pelvic fluid or fluid collection. IMPRESSION No intrauterine is demonstrated at this time on ultrasound. The endometrium is unremarkable measuring 1 cm in thickness. This may represent a very early normal . Please note an ectopic or aborted are not excluded. Close interval follow-up and correlation with beta hCG levels is recommended. Slightly complex area in the right ovary which may represent a corpus luteum cyst. - Medical Decision Making 20-year-old female positive who was here 2 days ago with cramping who now presents with vaginal bleeding. Ultrasound from 2 days ago did not reveal an IUP. Today labs reveal downward trending hCG suggestive of miscarriage. Patient is Rh+ and does not require RhoGAM. H&H normal. Initial tachycardia improved without intervention and BP stable outpatient follow-up with DIRECTOR OF DIGITAL PLATFORMS advised Critical Care Time: No Critical care attestation.: If time is entered above; I have spent that time in minutes in the direct care of this critically ill patient, excluding procedure time. ED Disposition Clinical Impression: Miscarriage Disposition: 01 HOME / SELF CARE / HOMELESS Is pt being admited?: No Does the pt Need Aspirin: No Condition: Stable Instructions: Miscarriage, [id number] Additional Instructions: Take the medication as prescribed. Follow-up with your doctor or doctor/clinic provided. Return if symptoms worsen as indicated by your discharge instr uctions. Prescriptions: Ibuprofen [Motrin] 800 mg PO Q8HR PRN #30 tablet PRN Reason: Pain , Severe (7-10) Referrals: PRIMARY CARE, [Primary Care Provider] - 3-5 Days NINI PARTIDA MD [Staff Physician] - 3-5 Days (TALLOW MAKER MD) Time of Disposition: 10:21
[2021-06-04 08:09] LABS: Basophils # (Auto) 0.1 K/mm3 (0.0-0.1); Basophils % (Auto) 0.8 % (0.0-1.8); Eosinophils # (Auto) 0.1 K/mm3 (0.0-0.4); Eosinophils % (Auto) 1.2 % (0.0-4.3); Hematocrit 37.5 % (30.3-42.9); Hemoglobin 12.8 gm/dl (10.1-14.3); Lymphocytes # (Auto) 1.4 K/mm3 (1.2-5.4); Lymphocytes % (Auto) 20.5 % (13.4-35.0); Mean Corpuscular HGB Conc 34 % (30-34); Mean Corpuscular Volume 88 fl (79-97); Monocytes # (Auto) 0.5 K/mm3 (0.0-0.8); Monocytes % (Auto) 7.9 % (0.0-7.3); Platelet Count 226 K/mm3 (140-440); Red Blood Count 4.27 M/mm3 (3.65-5.03); Red Cell Distribution Width 13.5 % (13.2-15.2)
[2021-06-04 08:57] VITALS: BP 116/62
[2021-06-04] MEDS ORDERED: KETOROLAC 60 MG/2 ML INJ IM ONE (08:59)
[2021-06-04] MEDS ORDERED: ACETAMINOPHEN 325 MG TAB PO ONE (08:59)
== END 2021-06-04 10:38 | disposition home or self-care (01) ==
LOC: ED 05:58
DX: O03.9 Complete or unspecified spontaneous abortion without complication (principal); Z3A.01 Less than 8 weeks gestation of pregnancy
CPT/HCPCS: 36415; 84702; 85025; 86850; 86900; 86901; 96372; 99283; J1885